=== PATIENT | male | born 1955 | race Caucasian/White ===

== ENCOUNTER → 2020-08-11 08:13 | Outpatient (CLI) | payer BC | END | disposition home or self-care (01) | LOC: D.HCCARDIO 08:13 | PROVIDERS: ATTEND Internal Medicine Cardiovascular Disease | DX: Z03.89 Encounter for observation for other suspected diseases and conditions ruled out (principal) ==

== ENCOUNTER 2020-08-16 06:59 | Day surgery (SDC) | payer BC ==
[~2020-08-16] VITALS: Ht 177.8 cm; Wt 109.1 kg
--- NOTE | ~2020-08-16 | HEMODYNAMI ---
PATIENT:JOSE MANUEL BALL MEDICAL RECORD: [id number] : 57 LOCATION:[facility] ADMISSION DATE: 08/16/20 Generatedon:19:52 Patient name: JOSE MANUEL BALL Patient #: [id number] SSN: [id number] : 1955 Date of study: 08/16/2020 Page: Of Hemodynamic Procedure Report Patient Data Patient Demographics Procedure consent was obtained First Name: JOSE MANUEL Gender: Male Last Name: QUINN : 1955 Patient #: [id number] Age: 65 year(s) Race: SSN: [id number] Additional ID: [id number] Contact details [address]: [address] [place] [address] State: [place] City: [place] Zip code: [address] Past Medical History Performed procedures and imaging results Date Procedure Procedure Results Comments 08/11/2020 Stress testing Positive->Intermediate with SPECT MPI risk Allergies Allergen Reaction Date Comments Reported Other allergy 08/16/2020 LISINOPRIL Admission Admission Data Admission Date: 08/16/2020 Admission Time: 6:59 Arrival Date: 08/16/2020 Arrival Time: 0:00 Admit Source: Other Insurance Payor: Private health insurance [facility] #: [id number] Height (in.): 69.69 BSA: 2.25 (m2) Height (cm.): 177 BMI: 34.79 (kg/m2) Weight (lbs.): 240.31 Weight (kg.): 109 Lab Results Lab Result Date: 08/16/2020 Lab Result Time: 0:00 Biochemistry Name Units Result Min Max BUN mg/dl 7 --(*---)-- 7 18 Creatinine mg/dl 0.7 --(*---)-- 0.6 1.3 eGFR ml/min 90 --(*---)-- 90 120 NONAFRICAN CBC Name Units Result Min Max Hemoglobin g/dl 18.2 --(----)*- 13.5 17.5 Procedure Procedure Types Cath Procedure Diagnostic Procedure [facility] w/Coronaries Sedation Charges Moderate Sedation 25-39 minutes Procedure Description Procedure Date Procedure Date: 08/16/2020 Procedure Start Time: 9:33 Procedure End Time: 9:47 Procedure Staff Name Function Luis Maldonado MD Performing Physician Sharmila Rodriguez RT Monitor Janet Peter RN Nurse Viktoria Rasmussen RT Scrub Procedure Data Cath Procedure Fluoroscopy Diagnostic fluoroscopy Total fluoroscopy Time: 2.6 time: 2.6 min min Diagnostic fluoroscopy Total fluoroscopy dose: 610 dose: 610 mGy mGy Contrast Material Contrast Material Type Amount (ml) Isovue 300 67 Entry Location Entry Primary Successful Side Size Upsize Upsize Entry Closure Succes sful Closure Location (Fr) 1 (Fr) 2 (Fr) Remarks Device Remarks Femoral Right 5 Fr Exoseal artery Estimated blood loss: 5 ml Diagnostic catheters Device Type Used For End Catheter Placement MULTIPACK JL 4.0 5Fr Left Coronary catheter Angiography DIAGNOSTIC JL 5 5Fr Left Coronary catheter ([id number]) Angiography MULTIPACK 3DRC 5Fr Right Coronary catheter Angiography MULTIPACK Pigtail 5 Fr LV Angiography catheter Procedure Complications No complications Procedure Medications Medication Administration Route Dosage Oxygen etCO2 Nasal cannula 2 l/min Lidocaine 2% added to field 20 Heparin Flush Bag added to field 2 bags (1000units/500ml NS) 0.9% NaCl I.V. 100 ml/hr Versed I.V. 1 mg Fentanyl I.V. 50 mcg Fentanyl I.V. 50 mcg Versed I.V. 1 mg Hemodynamics Rest BSA: 2.25 (m2) HGB: 18.2 (g/dl) O2 Consumption: Estimated: 274.94 (ml/min) O2 Co nsumption indexed: Estimated:122.2 (ml/min/m) Heart Rate: 84 (bpm) Pressure Samples Time Site Value (mmHg) Purpose Heart Use Rate(bpm) 9:43 LV 140/-8,6 Snapshot 79 Gradients Valve Time Site Site Mean SEP/DFP Peak To Heart Use 1 2 (mmHg) (sec/min) Peak Rate (mmHg) (bpm) Aortic 9:44 LV AO 79 Snapshots Pre Cath Intra NCS Post Cath Vital Signs Time Heart Resp SPO2 etCO2 NIBP (mmHg) Rhythm Pain Sedation Rate (ipm) (%) (mmHg) Status Level (bpm) 9:15:11 80 13 96 27.8 146/92(122) NSR 0 (11) 10(A) , No pain 9:19:43 83 15 94 26.3 136/80(114) NSR 0 (11) 10(A) , No pain 9:24:08 81 19 94 18 135/84(98) NSR 0 (11) 9(A) , No pain 9:28:29 71 15 94 28.5 137/78(111) NSR 0 (11) 9(A) , No pain 9:32:54 76 15 93 26.2 128/84(108) NSR 0 (11) 9(A) , No pain 9:37:16 78 14 92 18.7 132/81(111) NSR 0 (11) 9(A) , No pain 9:41:42 76 18 97 23.3 139/75(120) NSR 0 (11) 9(A) , No pain 9:46:10 78 19 96 24.7 143/82(109) NSR 0 (11) 10(A) , No pain Medications Time Medication Route Dose Verified Delivered Reason Notes Effe ctiveness by by 9:19:01 Oxygen etCO2 2 Luis Buffie used for Nasal l/min Joel Peter RN procedure cannula 9:19:08 Lidocaine 2% added 20ml Luis Luis for local to vial Joel Maldonado MD anesthetic field 9:19:15 Heparin Flush added 2 Luis Luis used for Bag to bags Joel Maldonado MD procedure (1000units/500ml field NS) 9:19:25 0.9% NaCl I.V. 100 Luis Buffie Per ml/hr Joel Peter RN physician 9:20:33 Versed I.V. 1 mg Luis Buffie for Joel Peter RN sedation 9:20:38 Fentanyl I.V. 50 Luis Buffie for mcg Joel Peter RN sedation 9:28:04 Fentanyl I.V. 50 Luis Buffie for mcg Joel Peter RN sedation 9:33:09 Versed I.V. 1 mg Luis Buffie for Joel Peter RN sedation Procedure Log Time Note 8:48:12 Informed consent obtained and on chart 8:48:23 Diagnostic Cath Status : Elective 8:49:06 Arrival Date: 08/16/2020 12:00:00 AM 8:49:06 Admit Source: Other 8:49:08 Insurance Payor : Private health insurance 8:50:16 Patient allergic to Other allergyLISINOPRIL 8:50:21 ACC Patient presents with Stable Angina CCS Anginal Class 2--Slight limitation of ordinary activity. 8:50:24 Procedure Status Elective Heart Cath (OP). 8:50:25 Time tracking: Regular hours (M-F 7:00 - 5:00) 8:50:30 Plan of Care:Hemodynamics will remain stable., Cardiac rhythm will remain stable., Comfort level will be maintained., Respiratory function will remain adequate., Patient/ family verbilizes understanding of procedure., Procedure tolerated without complication., Recovers from procedure without complications.. 8:50:38 H&P Date Dictated: 08/04/2020 Within 30 days and on chart.. 8:50:43 Alarms reviewed by R. N. 8:50:43 Sharps counted by scrub and verified by R.N. 8:56:51 Janet Peter RN sent for patient. Start room use. 9:07:26 Patient received from Pre/Post Procedure Room to CCL 1 Alert and oriented. Tansferred to table in Supine position. 9:07:28 Correct patient and procedure confirmed by team. 9:07:30 Warm blankets applied, and rashel hugger turned on for patient comfort. 9:07:31 ECG and BP/O2 sat monitors applied to patient. 9:13:50 Vital chart was started 9:13:51 Baseline sample Acquired. 9:13:57 Rhythm: sinus tachycardia 9:13:59 Full Disclosure recording started 9:13:59 Pre-procedure instructions explained to patient. 9:14:00 Pre-op teaching completed and patient verbalized understanding. 9:14:05 Family in patients room. 9:14:06 Patient NPO since Midnight. 9:14:11 Is the patient allergic to Iodine/contrast media? No. 9:14:12 Was the patient premedicated? Yes 9:14:13 Is patient on blood thinner?No 9:14:28 Patient diabetic? No. 9:14:31 Previous problem with sedation/anesthesia? No ? 9:14:32 Snore? Yes 9:14:33 Sleep apnea? Yes 9:14:34 Deviated septum? No 9:14:35 Opens mouth fully? Yes 9:14:36 Sticks out tongue? Yes 9:14:39 Airway obstruction? Yes COPD 9:14:44 Dentures? No ? 9:14:50 Pre procedure: right dorsailis pedis pulse 2+ Normal; easily identifiable; not easily obliterated 9:14:52 Pre procedure: left dorsailis pedis pulse 2+ Normal; easily identifiable; not easily obliterated 9:14:54 Patient pain scale 0/10 ?. 9:15:02 IV patent on arrival in right antecubital with 0.9% NaCl at [facility]. 9:15:04 Lab results completed and on chart. 9:15:08 Right groin area was prepped with chlora-prep and draped in sterile fashion 9:15:10 Physician arrived 9:15:11 --------ALL STOP TIME OUT------ 9:15:11 Final Timeout: patient, procedure, and site verified with staff and physician. All members of the team are in agreement. 9:15:13 Right groin site verified by team. 9:15:17 Fire Safety Assessment: A--An alcohol-based skin anteseptic being used preoperatively., C--Open oxygen or nitrous oxide is being used., D--An ESU, laser, or fiber-optic light is being used. 9:15:20 Physical assessment completed. ASA score P 2 - A patient with mild systemic disease as per Luis Maldonado MD. 9:15:24 Sedation plan: IV Moderate Sedation Medication:Versed, Fentanyl 9:17:08 Lab Result : BUN 7 mg/dl 9:17:08 Lab Result : Creatinine 0.7 mg/dl 9:17:08 Lab Result : Hemoglobin 18.2 g/dl 9:17:08 Lab Result : eGFR NONAFRICAN 90 ml/min 9:17:16 1) 90+ Normal kidney functon but urine findings or structural abnormalities or genetic trait point to kidney disease. 9:17:19 Maximum allowable contrast dose (3.7 X eGFR X 0.75)250 ml. 9:17:22 Use device set Femoral Dx 9:17:23 ACIST Syringe (84424) opened to sterile field. 9:17:24 Bag Decanter () opened to sterile field. 9:17:24 Medline Cath Pack ([id number]) opened to sterile field. 9:17:25 ACIST Hand Control (42012) opened to sterile field. 9:17:26 ACIST Manifold (83124) opened to sterile field. 9:17:26 DIAGNOSTIC Multipack 5Fr catheter set ([id number]) opened to sterile field. 9:17:27 Tegaderm 4 x 4 (1626W) opened to sterile field. 9:17:28 SHEATH 5FR [place] (AFX755) opened to sterile field. 9:17:29 EMERALD Guide Wire (400-074) opened to sterile field. 9:19:01 Oxygen 2 l/min etCO2 Nasal cannula was administered by Janet Peter RN; used for procedure; Verbal order read back and verified. 9:19:08 Lidocaine 2% 20ml vial added to field was administered by Luis Maldonado MD; for local anesthetic; Verbal order read back and verified. 9:19:13 Patient Height : 69.69 inches 9:19:15 Heparin Flush Bag (1000units/500ml NS) 2 bags added to field was administered by Luis Maldonado MD; used for procedure; Verbal order read back and verified. 9:19:16 Patient Weight : 240.31 lbs 9:19:25 0.9% NaCl 100 ml/hr I.V. was administered by Janet Peter RN; Per physician; Verbal order read back and verified. 9:20:33 Versed 1 mg I.V. was administered by Janet Peter RN; for sedation; Verbal order read back and verified. 9:20:38 Fentanyl 50 mcg I.V. was administered by Janet Peter RN; for sedation; Verbal order read back and verified. 9:28:04 Fentanyl 50 mcg I.V. was administered by Janet Peter RN; for sedation; Verbal order read back and verified. 9:32:07 Procedure started. 9:33:09 Versed 1 mg I.V. was administered by Janet Peter RN; for sedation; Verbal order read back and verified. 9:33:40 Local anesthetic to right femoral artery with Lidocaine 2% by Luis Maldonado MD.INITIAL ACCESS ONLY 9:33:50 A 5 Fr sheath was inserted into the Right Femoral artery 9:38:20 A MULTIPACK JL 4.0 5Fr catheter was advanced over the wire and used for Left Coronary Angiography. 9:38:27 Catheter removed. unable to cannulate vessel. 9:39:06 A DIAGNOSTIC JL 5 5Fr catheter ([id number]) was advanced over the wire and used for Left Coronary Angiography. 9:39:26 LCA angiography performed. 9:39:29 Injector settings: Ml/sec: 3, Volume: 6, 9:40:41 Catheter removed. 9:40:49 A MULTIPACK 3DRC 5Fr catheter was advanced over the wire and used for Right Coronary Angiography. 9:42:08 RCA angiography performed. 9:42:15 Injector settings: Ml/sec: 3, Volume: 6, 9:42:19 Catheter removed. 9:42:25 A MULTIPACK Pigtail 5 Fr catheter was advanced over the wire and used for LV Angiography. 9:44:01 LV hemodynamics recorded. 9:44:02 LV gram done using MUSA 9:44:05 Injector settings: Ml/sec: 5, Volume: 15, 9:44:20 EF : 60 % 9:44:33 Catheter removed. 9:44:48 EXOSEAL 5Fr (EX500) opened to sterile field. 9:45:06 Sheath removed intact; hemostasis achieved with Exoseal to the Right Femoral artery. 9:45:07 Procedure ended.(Physican Out) 9:45:36 Fluoroscopy time 02.60 minutes. 9:45:40 Fluoroscopy dose: 610 mGy 9:45:40 Flurop Dose total: 610 9:45:46 Dose Area Product 90758 mGy/cm. 9:45:51 Contrast amount:Isovue 300 67ml. 9:45:53 Maximum allowable dose exceeded? No. 9:45:54 Sharps counted by scrub and verified by R.N. 9:46:27 Insertion/operative site no bleeding no hematoma. 9:46:33 Post-op/insertion site Right Femoral artery dressed using a 4 x 4 and Tegaderm. 9:46:34 Post Procedure Pulses reassessed and unchanged 9:46:36 Post procedure rhythm: unchanged. 9:46:39 Estimated blood loss: 5 ml 9:46:41 Post procedure instruction explained to patient.Patient verbalizes understanding. 9:46:41 Patient needs reinforcement of post procedure teaching. 9:46:53 Procedure and supply charges have been captured, reviewed, submitted and are correct. 9:47:08 Procedure type changed to Cath procedure, Diagnostic procedure, LHC, LHC w/Coronaries, Sedation Charges, Moderate Sedation 25-39 minutes 9:47:14 Procedure Complication : No complications 9:47:16 Vital chart was stopped 9:47:18 [facility] Findings: mild to moderate CAD (<70%) 9:47:20 Operative report dictated upon procedure completion. 9:47:20 See physician's report for complete and final results. 9:47:23 Report given to Pre/Post Procedure Room. 9:47:27 Patient transfered to Pre/Post Procedure Room with Stretcher. 9:47:29 Procedure ended. 9:47:29 Full Disclosure recording stopped 9:47:34 End room use (Document Last) 9:50:18 End room use (Document Last) 9:50:41 End room use (Document Last) 9:50:55 End room use (Document Last) Device Usage Item Name Manufacture Quantity Catalog Hospital Part Current Minimal L ot# / Number Charge Number Stock Stock Serial# Code ACIST Acist 1 35628 986953 502060 229824 20 Syringe Medical (99796) Systems Inc Bag Microtek 1 2001S 443755 25208 843517 5 Decanter Medical Inc. () Medline Medline 1 [id number] 86839 983689 5 Cath Pack ([id number]) ACIST Hand Acist 1 86086 603771 474478 199264 5 Control Medical (48863) Systems Inc ACIST Acist 1 66287 917674 368891 058988 5 Manifold Medical (41994) Systems Inc DIAGNOSTIC Cardinal 1 [id number] 246680 71918 130316 30 Multipack SkillsTrak 5Fr catheter set (AD8130) Tegaderm 4 3M 1 1626W 236327 185812 115023 5 x 4 (1626W) SHEATH 5FR Terumo 1 [id number] 853146 183291 719043 5 [place] (ZVG014) EMERALD Cardinal 1 502-455 468349 960802 211947 5 Guide Wire Health (502-455) MULTIPACK Cardinal 1 099090 5 JL 4.0 5Fr Health catheter DIAGNOSTIC Cardinal 1 [id number] 681663 742196 999693 5 JL 5 5Fr Health catheter (105922A) MULTIPACK Cardinal 1 204230 5 3DRC 5Fr Health catheter MULTIPACK Cardinal 1 562309 5 Pigtail 5 Health Fr catheter EXOSEAL 5Fr Cardinal 1 EX500 977517 540421 880954 10 (EX500) Health Signature Audit [place] Stage Time Signature Unsigned Intra-Procedure 08/16/2020 Sharmila Rodriguez 9:50:18 AM RT(R) Intra-Procedure 08/16/2020 Janet Peter RN 9:50:55 AM Intra-Procedure 08/16/2020 Luis Maldonado MD 9:51:58 AM [id number] [place] [address]
[2020-08-16] MEDS ORDERED: ADVAIR 250-501 EAC1 INH (07:39)
[2020-08-16] MEDS ORDERED: NORVASC5 MG PO (07:40)
[2020-08-16] MEDS ORDERED: ZOCOR20 MG PO (07:40)
[2020-08-16] MEDS ORDERED: KLOR-CON 1010 MEQ PO (07:40)
[2020-08-16] MEDS ORDERED: DIOVAN320 MG PO (07:41)
[2020-08-16] MEDS ORDERED: FUROSEMIDE20 MG PO (07:41)
[2020-08-16 07:56] VITALS: BP 164/87; Ht 177.8 cm; Wt 109.1 kg
[2020-08-16 08:10] LABS: BASOPHILS 0.8 % (0-2); EOSINOPHILS 0.4 % (0-7); HEMATOCRIT 52.3 % (42.0-54.0); HEMOGLOBIN 18.2 g/dL (13.5-17.5); LYMPHOCYTES 11.1 % (15-50); MCH 34.5 pg (26.0-34.0); MCHC 34.9 g/dL (31.0-37.0); MCV 98.9 fL (80.0-100.0); MEAN PLATELET VOLUME 7.3 fL (7.4-10.4); MONOCYTES 11.3 % (2-11); NEUTROPHILS 76.4 % (40-80); PLATELET COUNT 213 10x3/uL (130-400); RBC 5.28 10x6/uL (4.20-6.10); RDW 13.7 % (11.5-14.5); WBC 8.5 10x3/uL (4.8-10.8)
[2020-08-16 08:22] LABS: ALT (SGPT) 41 U/L (10-68); CALC OSMOLALITY 256 mosm/kg (275-300); CALCIUM 8.9 mg/dL (8.5-10.1); CARBON DIOXIDE 27.6 mmol/L (21.0-32.0); CHLORIDE - SERUM 92 mmol/L (98-107); CHOL - HDL RATIO 1.5 ratio (2.3-4.9); CHOLESTEROL, TOTAL 119 mg/dL (0-200); CREATININE - SERUM 0.7 mg/dL (0.6-1.3); GLUCOSE 103 mg/dL (74-106); HDL CHOLESTEROL 78 mg/dL (32-96); LDL CHOLESTEROL 34 mg/dL (0-100); LDL-HDL RATIO 0.4 ratio (1.5-3.5); POTASSIUM - SERUM 4.1 mmol/L (3.5-5.1); SODIUM 129 mmol/L (136-145); TRIGLYCERIDE 38 mg/dL (30-200); UREA NITROGEN 7 mg/dL (7-18); eGFR NON AFRICAN AMERICAN > 90 mL/min (90-120)
--- NOTE | 2020-08-16 10:00 | NUR ---
PT ARRIVED BY STRETCHER. PLACED ON MONITORS. ASSESSMENT COMPLETED. VSS. FAMILY AT BEDSIDE. DR. DAVID ROUNDED AND SPOKE WITH PT'S . CALL LIGHT LEFT WITHIN REACH.
--- NOTE | 2020-08-16 10:15 | NUR ---
RIGHT GROIN DRESSING C/D/I. NO S/S OF HEMATOMA NOTED. RIGHT PEDAL PULSE PALPABLE. VSS AT THIS TIME. CALL LIGHT WITHIN REACH. PT DENIES NAUSEA/PAIN. TOLERATING SIPS OF WATER.
--- NOTE | 2020-08-16 10:45 | NUR ---
RIGHT GROIN DRESSING C/D/I. NO S/S OF HEMATOMA NOTED. RIGHT PEDAL PULSE PALPABLE. VSS AT THIS TIME. FAMILY AT BEDSIDE. CALL LIGHT WITHIN REACH.
--- NOTE | 2020-08-16 11:00 | NUR ---
RIGHT GROIN DRESSING C/D/I. NO S/S OF HEMATOMA NOTED. HEAD OF BED INC TO 30 DEGREES. TOLERATED WELL. SET UP WITH SANDWICH TRAY AND DRINK. CALL LIGHT WITHIN REACH. DENIES NAUSEA/PAIN.
--- NOTE | 2020-08-16 11:30 | NUR ---
RIGHT GROIN DRESSING C/D/I. NO S/S OF HEMATOMA NOTED. VSS AT THIS TIME. CALL LIGHT WITHIN REACH.
--- NOTE | 2020-08-16 11:50 | NUR ---
RIGHT GROIN DRESSING C/D/I. NO S/S OF HEMATOMA NOTED. PIV D/C'D WITH CATH TIP INTACT. TOLERATED WELL. DISCUSSED DISCHARGE INSTRUCTIONS WITH PT AND PT'S FAMILY. THEY VOICED UNDERSTANDING. PT INSTRUCTED TO GET UP AND DRESSED AT THIS TIME. FAMILY AT BEDSIDE TO ASSIST.
--- NOTE | 2020-08-16 12:00 | NUR ---
PT AMBULATED TO RESTROOM. VOIDED WITHOUT DIFFICULTY. STEADY GAIT NOTED. PT TAKEN OUT TO VEHICLE BY WHEELCHAIR. NO S/S OF DISTRESS NOTED. ALL BELONGINGS AND PAPERWORK IN HAND.
== END 2020-08-16 12:00 | disposition home or self-care (01) ==
LOC: D.CATH 06:59
PROVIDERS: ATTEND Internal Medicine Cardiovascular Disease
DX: I20.8 Other forms of angina pectoris (principal); R94.39 Abnormal result of other cardiovascular function study; R06.02 Shortness of breath; I10 Essential (primary) hypertension